=== PATIENT | male | born 1985 ===

== ENCOUNTER 2018-10-30 11:13 | Emergency (ER) | payer OTHER ==
[2018-10-30 11:50] VITALS: BMI 23.8
[2018-10-30 11:54] VITALS: RESP 19; O2SAT 98
--- NOTE | 2018-10-30 12:34 | ED PDOC ---
Lower Extremity Pain/Injury Time Seen by Provider: 10/30/18 11:37 Chief Complaint (Nursing): Abnormal Skin Integrity Chief Complaint (Provider): left great toe pain History Per: Patient History/Exam Limitations: no limitations Onset/Duration Of Symptoms: Days (x3) Current Symptoms Are (Timing): Still Present Additional Complaint(s): Romero Rowan is a 33 year old male, with no significant past medical history, who presents to the emergency department complaining of a left great toe pain onset x3 days ago. Patient states he initially had a pimple that just got progressively worst and believes it might have gotten infected. He used an ointment without any improvement. Patient states this is the first time he has experienced these symptoms. He denies any fever, chills, chest pain, shortness of breath, weakness, numbness, tingling or injury. No further medical complaints. PMD: None provided Past Medical History Reviewed: Historical Data, Nursing Documentation, Vital Signs Vital Signs: Last Vital Signs Temp 98.4 F 10/30/18 11:51 Pulse 98 H 10/30/18 11:51 Resp 19 10/30/18 11:51 BP Pulse Ox 98 10/30/18 11:51 - Medical History PMH: No Chronic Diseases - Surgical History Surgical History: No Surg Hx - Family History Family History: States: Unknown Family Hx - Social History Current smoker - smoking cessation education provided: No Alcohol: Social Drugs: Denies - Home Medications Home Medications: Ambulatory Orders Medication Instructions Recorded Amoxicillin/Clavulanate [Augmentin 1 tab PO BID 7 Days tab 10/30/18 875 MG-125 MG] Ibuprofen [Motrin] 600 mg PO TID 7 Days tab 10/30/18 - Allergies Allergies/Adverse Reactions: Allergies Allergy/AdvReac Type Severity Reaction Status Date / Time No Known Allergies Allergy Verified 10/30/18 11:50 Review of Systems ROS Statement: Except As Marked, All Systems Reviewed And Found Negative Constitutional: Negative for: Fever, Chills Cardiovascular: Negative for: Chest Pain Respiratory: Negative for: Shortness of Breath Musculoskeletal: Positive for: Foot Pain (left great toe) Neurological: Negative for: Weakness, Numbness (tingling) Physical Exam - Reviewed Nursing Documentation Reviewed: Yes Vital Signs Reviewed: Yes - Physical Exam Appears: Positive for: No Acute Distress Head Exam: Positive for: ATRAUMATIC, NORMAL INSPECTION, NORMOCEPHALIC Skin: Positive for: Normal Color, Warm, Dry Eye Exam: Positive for: Normal appearance, EOMI, PERRL Neck: Positive for: Normal, Painless ROM Pulses-Dorsalis Pedis (L): 2+ Pulses-Dorsalis Pedis (R): 2+ Extremity: Positive for: Normal ROM (Full ROM of toes, able to wiggle them), Capillary Refill (<2sec on great toe), Other (Mild erythema of left great toe. Medial aspect of toe with an abrasion and yellowish discharge. Mild poor hygiene.). Negative for: Deformity Neurologic/Psych: Positive for: Alert, Oriented. Negative for: Motor/Sensory Deficits - ECG O2 Sat by Pulse Oximetry: 98 (RA) Pulse Ox Interpretation: Normal - Radiology X-Ray: Read By Radiologist X-Ray Interpretation: No Acute Disease - Progress ED Course And Treament: 1329: Stable. AAOx3. Pain free. Tolerated PO. Podiatry saw pt. Does not meet criteria for admit. They I and D the toe. Want augmentin and dc. Fu Friday. Medical Decision Making Medical Decision Making: Time: 11:37 Initial Impression: Great toe Initial Plan: --Motrin tab 600mg PO --Foot left great toe routine [RAD] --Reevaluation ------- Scribe Attestation: Documented by Jose Luna, acting as a scribe for Brice Cole MD Provider Scribe Attestation: All medical record entries made by the Scribe were at my direction and personally dictated by me. I have reviewed the chart and agree that the record accurately reflects my personal performance of the history, physical exam, medical decision making, and the department course for this patient. I have also personally directed, reviewed, and agree with the discharge instructions and disposition. Disposition - Clinical Impression Clinical Impression: Abscess - Patient ED Disposition Is Patient to be Admitted: No Counseled Patient/Family Regarding: Studies Performed, Diagnosis, Need For Followup, Rx Given - Disposition Referrals: [facility] [Outside] - 11/02/18 Podiatry Clinic [Outside] - 11/02/18 Disposition: Routine/Home Disposition Time: 13:30 Condition: STABLE Additional Instructions: Return if not better in 3 days. Prescriptions: Amoxicillin/Clavulanate [Augmentin 875 MG-125 MG] 1 tab PO BID 7 Days tab Ibuprofen [Motrin] 600 mg PO TID 7 Days tab Instructions: Skin Abscess Forms: [facility] ([place])
--- NOTE | 2018-10-30 12:38 | RAD ---
PROCEDURE: Radiographs of the left great toe. TECHNIQUE:: AP radiograph of the left foot, with oblique and lateral view of the left great toe. COMPARISON: None. FINDINGS: BONES: Normal. No fracture. JOINTS: Normal. SOFT TISSUES: Normal. OTHER FINDINGS: None. IMPRESSION: Normal left great toe radiographs.
--- NOTE | 2018-10-30 13:20 | CP.PCM.CON ---
History of Present Illness - History of Present Illness History of Present Illness: Podiatry consult note: 33 yo male seen and evaluated in the ED with no significant past medical history complaining of a left great toe pain onset x3 days ago. Patient states he initially had a pimple that just got progressively worst and believes it might have gotten infected. He used an ointment without any improvement. Denies seeing this anywhere else in the body. He denies any fever, chills, chest pain, shortness of breath, weakness, numbness, tingling or injury. No further medical complaints. PMD: None provided Pshx: none Allergies: none Social hx: denies smoking or drinking alcohol Past Patient History - Past Social History Alcohol: Social Drugs: Denies - PSYCHIATRIC Hx Substance Use: No - SURGICAL HISTORY Hx Surgeries: No - ANESTHESIA Hx Anesthesia: No Meds Home Medications: Home Medication List Medication Instructions Recorded Confirmed Type Amoxicillin/Clavulanate [Augmentin 1 tab PO BID 7 Days tab 10/30/18 Rx 875 MG-125 MG] Ibuprofen [Motrin] 600 mg PO TID 7 Days tab 10/30/18 Rx Allergies/Adverse Reactions: Allergies Allergy/AdvReac Type Severity Reaction Status Date / Time No Known Allergies Allergy Verified 10/30/18 11:50 Results - Vital Signs Recent Vital Signs: Last Vital Signs Temp 98.4 F 10/30/18 11:51 Pulse 98 H 10/30/18 11:51 Resp 19 10/30/18 11:51 BP Pulse Ox 98 10/30/18 12:39 Assessment & Plan - Assessment and Plan (Free Text) Assessment: 33 yo male seen and evaluated for right hallux abscess with cellulitis Plan: Patient seen and evaluated Chart labs and vitals reviewed; absent leukocytosis and afebrile Foot x-rays reviewed no osseous abnormalities noted Rx Augmentin 875 mg BID x 10 days given by the ED
[2018-10-30 14:17] VITALS: BP 128/76; PULSE 78; TEMP 97.6
== END 2018-10-30 14:17 | disposition home or self-care (01) ==
LOC: H.ER 11:13
DX: L03.032 Cellulitis of left toe (principal)